=== PATIENT | female | born 1955 | race Asian ===

== ENCOUNTER 2019-06-06 11:50 | Outpatient (CLI) | payer OTHER ==
--- NOTE | 2019-06-19 10:41 | MRI Report ---
Reason: LOW BACK PAIN Procedure Date: 06/06/2019 Accession Number: [id number] / [id number] Procedure: MRI - Lumbar Spine W/O CPT Code: FULL RESULT: EXAM: MRI LUMBAR SPINE WITHOUT CONTRAST EXAM DATE: 06/06/2019 12:57 PM. CLINICAL HISTORY: Radiculopathy lumbar region. COMPARISONS: LUMBAR SPINE W/O 05/01/2014 2:50 PM. TECHNIQUE: Multiplanar, multisequence T1-weighted and fluid-sensitive sequences of the lumbar spine from T12 to S1. Other: None. IV contrast: None. FINDINGS: Neurologic Structures: The conus terminates at L1. The conus medullaris and cauda equina are unremarkable. Alignment: Normal alignment. No spondylolisthesis. Bone Marrow: Five [id number] lumbar vertebral bodies are assumed. No fracture. No destructive bone lesion. Disk Levels/Facets: T12-L1: Unremarkable. L1-L2: Mild facet arthropathy. No stenosis. L2-L3: Minimal disk dehydration. Slight annular disk bulge with tiny annular fissure. Mild facet arthropathy. No significant stenosis. L3-L4: Slight annular disk bulge and mild facet arthropathy. No significant stenosis. L4-L5: Mild disk dehydration. Annular disk bulge with annular fissure and mild degenerative facet arthropathy. Small broad-based left foraminal protrusion. Moderate left foraminal stenosis. L5-S1: Annular disk bulge and mild degenerative facet arthropathy. Mild right greater than left foraminal stenosis. Musculature: Unremarkable. Other: The visualized retroperitoneum is unremarkable. IMPRESSION: 1. Mild lumbar degenerative disk and facet arthropathy. 2. L4-L5 moderate left foraminal stenosis. 3. L5-S1 mild right greater than left foraminal stenosis. Comment: The following findings are so common in adults without low back pain that while we report their presence, they must be interpreted with caution and in the context of the clinical situation. (Reference Tejindervik et al, Spine 2001) Prevalence of findings in patients without low back pain: Disk degeneration (any evidence): 92% Disk desiccation/T2 signal loss: 83% Disk height loss: 56% Disk bulge: 64% Disk protrusion: 32% Annular tear/high intensity zone: 38% RADIA
== END 2019-06-06 11:51 | disposition home or self-care (01) ==
LOC: DI 11:50
PROVIDERS: ATTEND Internal Medicine
DX: M51.36 Other intervertebral disc degeneration, lumbar region (principal); M48.061 Spinal stenosis, lumbar region without neurogenic claudication; M47.816 Spondylosis without myelopathy or radiculopathy, lumbar region
CPT/HCPCS: 72148; 72158